=== PATIENT | male | born 1980 | race Caucasian/White ===

== ENCOUNTER 2017-11-23 00:46 | Emergency (ER) | payer OTHER, SELFPAY ==
[2017-11-23 00:48] VITALS: BP 138/72; PULSE 83; RESP 17; TEMP 36.7; O2SAT 99; BMI 43.2
--- NOTE | 2017-11-23 00:58 | ED.DCSUM_ITS ---
- ER Visit Summary Date of Service: 11/23/17 Chief Complaint: [] Stated he was at work at 6 PM and lifted heavy coils and felt abdominal pain. He has never had that before. He thinks it is from lifting heavy weight. Denies any other symptoms. It has been persistent. No history of a hernia. History of Present Illness: The patient is a 37 M [] Physical Examination: [] Vital signs reviewed General: Well-nourished well-developed Head: Normocephalic atraumatic Eyes: Pupils equal round and reactive to light extraocular movements intact ENT: TMs clear no hemotympanum no trauma Neck: Nontender full range of motion Cardiovascular: Regular rate rhythm no murmurs normal S1-S2 Respiratory: No distress clear to auscultation bilaterally chest nontender Abdomen: Soft superficial midline abdominal wall hernia just above umbilicus. Nondistended normal bowel sounds no masses Back: Nontender no CVA tenderness Extremities: Nontender active range of motion ?4 extremities no trauma Skin: Normal color no trauma Neuro alert oriented cranial nerves II through XII intact normal strength sensation reflexes Test Results: [] Emergency Department Course and Treatment: [] Hernia was easily reduced while laying him flat. Pain resolved. He will follow-up with Yosef in surgery. Given work restrictions. Treatment Plan: [] Disposition: [] Impression: [], Reducible abdominal wall hernia secondary to lifting This note was generated with [employer] (PRIMP) dictation software. It may contain incorrect words, spelling, and punctuation that were not noted in review of the chart prior to signing ED Disposition - Plan for ED Patient: Chief Complaint: Abd Pain Referrals: Care Physician,No Primary [Primary Care Provider] -
--- NOTE | 2017-11-23 00:58 | ED.DEP ---
ED Disposition - Plan for ED Patient: Disposition: Home or Assisted Living Chief Complaint: Abd Pain Instructions: What Is a Hernia? Referrals: Care Physician,No Primary [Primary Care Provider] - [facility] [GROUP OF PHYSICIANS] - Hannah Hodges MD [STAFF PHYSICIAN] -
[2017-11-23 01:49] VITALS: PULSE 78; RESP 18; O2SAT 100
== END 2017-11-23 01:50 | disposition home or self-care (01) ==
PROVIDERS: Emergency Provider Emergency Medicine
DX: K43.9 Ventral hernia without obstruction or gangrene (principal); E66.9 Obesity, unspecified
CPT/HCPCS: 99282

== ENCOUNTER → 2017-11-27 06:59 | Outpatient (CLI) | payer OTHER, SELFPAY ==
--- NOTE | 2017-11-27 07:03 | CT_ITS ---
STUDY: CT ABDOMEN AND PELVIS WITHOUT CONTRAST REASON FOR EXAM: Male, 37 years old. Abdominal pain. Umbilical hernia. RADIATION DOSAGE (If Supplied By Facility): CTDIvol = ( 23.53 ) mGy, DLP = ( 1364.12 ) mGycm TECHNIQUE: Transaxial images were obtained from the dome of the diaphragm to the symphysis pubis without oral contrast, and without intravenous contrast. Sagittal and coronal images were reconstructed. Individualized dose optimization techniques were used for this CT. COMPARISON: None. FINDINGS: The visualized lung bases are unremarkable. The visualized portions of the heart are within normal limits. There is decreased attenuation of the liver consistent with mild steatosis. The gallbladder is contracted. Normal unenhanced spleen and pancreas. Normal bilateral adrenal glands. Normal right kidney. Normal left kidney. Normal visualized stomach. Normal small intestine. There is moderate amount of retained fecal debris/stool seen in the colon. The appendix is visualized and appears normal. Normal abdominal aorta. Normal inferior vena cava. Normal retroperitoneum. Normal urinary bladder. Normal visualized prostate gland. A moderate size right paraumbilical hernia is demonstrated containing somewhat dirty/inflamed mesenteric fat. There are bilateral small inguinal hernias containing adipose tissue. Normal osseous structures. CT/Abdomen/Pelvis without Cont IMPRESSION: 1. A paraumbilical hernia containing somewhat dirty/inflamed mesenteric fat and bilateral small inguinal hernias containing adipose tissue demonstrated. 2. Gallbladder is contracted. 3. Moderate colonic stool volume. 4. No acute abnormality noted in the abdomen/pelvis. Electronically Signed: Rafat Shaw MD at 11:44 EDT Tel , Service support ,
== END ==
PROVIDERS: Visit Provider Surgery
DX: K43.9 Ventral hernia without obstruction or gangrene (principal); K42.0 Umbilical hernia with obstruction, without gangrene; R10.11 Right upper quadrant pain; R10.31 Right lower quadrant pain
CPT/HCPCS: 74176

== ENCOUNTER 2017-12-10 11:01 | Day surgery (SDC) | payer OTHER, SELFPAY ==
[2017-12-10] VITALS (7 sets, daily range): BP systolic 123–152; BP diastolic 73–96; PULSE 50–83; RESP 16–24; TEMP 36–37; O2SAT 92–97; BMI 43.9
[2017-12-10] MEDS: Cefazolin 2 GM in 0.9% Normal Saline 100 ML IV (12:58)
[2017-12-10] MEDS: Bupivacaine Mpf 0.5% 30 ML VIAL (15:10)
--- NOTE | 2017-12-10 15:19 | PCM.OPRPT ---
Report of Operation Date of Procedure: 12/10/17 Pre-Operative Diagnosis: Abdominal wall hernia, ventral hernia ?2 Post-Operative Diagnosis: Ventral hernia ?2 Surgery/Procedure Performed:: Laparoscopic ventral hernia repair ?2 with mesh Type of Anesthesia:: General Anesthesiologist: Bandar Parker Special Medications: Ancef 2 g IV ?1 Specimen's removed: None Estimated Blood Loss (mL): <20 cc Fluids Replaced: 2000 cc Description of Procedure: Indications this is a 37 year-old male who had a symptomatic ventral hernia ?2. Laparoscopic ventral hernia repair with mesh was elected. Description procedure: The patient was placed on operating table in supine position. General Anesthesia was induced. A timeout was completed verifying correct patient, procedure, site, position, social, and special equipment prior to beginning procedure. The abdomen was prepped and draped in usual sterile fashion. An incision was made in the epigastric midline at the location of the superior midline hernia which was located with use of ultrasound. The fascia was elevated and incised. The peritoneum was elevated and incised. Entry into the peritoneum was confirmed visually and no bowel was noted in the vicinity of the incision. Car trocar was placed. The abdomen was insufflated with carbon dioxide to a pressure of 12-15 mmHg. Patient tolerated insufflation well. The laparoscope was then inserted and abdomen inspected. No injuries from initial trocar placement were noted. Additional trochars were then inserted in the following locations 5 mm trocar in the right upper quadrant, right mid quadrant and right lower quadrant. The abdomen was inspected no abnormalities were found. The ventral hernias were inspected and peritoneal fat was removed with gentle pulling and pressure from both hernia. The hernia fat was removed using the Enseal and taken out through that Car trocar. This was also done with the more superior midline hernia as well. There was a small band between the trocar site in the more superior hernia which was taken down with Metzenbaum scissors. The echo mesh 11.4 cm x 11.4 cm was chosen for repair that would cover the lower ventral hernia, since the more superior one was smaller and they were by 12 cm. Mesh was rolled into a cylinder in place through the Car trocar. The inflation tubing was grasped with a suture passer in the middle of the hernia defect and pulled up against the abdominal wall. The balloon was deployed and the mesh was laying flat against the abdominal wall. This secure strap tacker was used to secure the mesh in place. The balloon deployment system was removed from the mesh and the abdomen. The mesh was further secured in place with additional tacks. Secondary trochars removed under direct vision. No bleeding was noted the trocar sites. The laparoscope was withdrawn and epigastric trocar removed. The abdomen was allowed to collapse. The fascia of the 12 mm trocar/more superior midline hernia was closed with 3 [id number] 0 Vicryl suture. The skin was closed with sutures of 4-0 Monocryl and Steri-Strips. The patient was extubated. The patient tolerated procedure well and was taken to the postanesthesia care unit in stable condition. - Complications None
--- NOTE | 2017-12-10 15:26 | PCM.DC.GS ---
Discharge Diet: Light diet - advance as tolerated Discharge Activity: May not drive while taking narcotic pain medications. May shower in (days): 1 Lifting Restrictions: No lifting greater than 20 lbs for 4 weeks & then will gradually increase Call your doctor if your incision/area has: Continuous Slow Oozing, Sudden Increased Bleeding, Increased Pain/ Swelling, Increased Redness, Foul Smelling Discharge, Swelling at the incision site Remove Dressing in (days):: 1 - Lead series in place for 10 days if they do not fall off okay to remove Additional Instructions: Percocet can cause constipation recommend taking stool softeners in the morning and at night while taking narcotics. Recommend taking ibuprofen/Advil 4-600 mg p.o. every 6 hours with food in between doses of Percocet to hopefully allow you to take less narcotics. If no bowel movement in 1 day would take several doses of MiraLAX. If no results from that would recommend taking magnesium citrate, first take half the bottle if no results in 6 hours then drink the remaining half. Allergies/Adverse Reactions: Allergies No Known Allergies Allergy (Verified 12/06/17 08:46) Medications to take at Discharge Oxycodone HCl/Acetaminophen [Percocet 5/325] 1 - 2 tab PO Q4H PRN PRN 4 Days #30 tab 12/10/17 The following prescriptions were given: Oxycodone HCl/Acetaminophen [Percocet 5/325] 1 - 2 tab PO Q4H PRN PRN 4 Days #30 tab PRN Reason: Pain Primary Care Physician: Care Physician,No Primary [Primary Care Provider] - Please Follow Up With: Hannah Hodges MD - after 5pm/weekend call [phone] with any concerns When: call office on Wednesday for appt in 2 weeks Proposed Discharge Date: 12/10/17
--- NOTE | 2017-12-10 15:30 | DCINST_ITS ---
Discharge Diet: Light diet - advance as tolerated Discharge Activity: May not drive while taking narcotic pain medications. May shower in (days): 1 Lifting Restrictions: No lifting greater than 20 lbs for 4 weeks & then will gradually increase Call your doctor if your incision/area has: Continuous Slow Oozing, Sudden Increased Bleeding, Increased Pain/ Swelling, Increased Redness, Foul Smelling Discharge, Swelling at the incision site Remove Dressing in (days):: 1 - Lead series in place for 10 days if they do not fall off okay to remove Additional Instructions: Percocet can cause constipation recommend taking stool softeners in the morning and at night while taking narcotics. Recommend taking ibuprofen/Advil 4-600 mg p.o. every 6 hours with food in between doses of Percocet to hopefully allow you to take less narcotics. If no bowel movement in 1 day would take several doses of MiraLAX. If no results from that would recommend taking magnesium citrate, first take half the bottle if no results in 6 hours then drink the remaining half. Allergies/Adverse Reactions: Allergies No Known Allergies Allergy (Verified 12/06/17 08:46) Medications to take at Discharge Oxycodone HCl/Acetaminophen [Percocet 5/325] 1 - 2 tab PO Q4H PRN PRN 4 Days # 30 tab 12/10/17 The following prescriptions were given: Oxycodone HCl/Acetaminophen [Percocet 5/325] 1 - 2 tab PO Q4H PRN PRN 4 Days # 30 tab PRN Reason: Pain Primary Care Physician: Care Physician,No Primary [Primary Care Provider] - Please Follow Up With: Hannah Hodges MD - after 5pm/weekend call [phone] with any concerns When: call office on Wednesday for appt in 2 weeks Proposed Discharge Date: 12/10/17
[2017-12-10] MEDS: oxyCODONE 5 MG Tablet 10 MG PO (16:50)
== END 2017-12-10 19:10 | disposition home or self-care (01) ==
LOC: SDC 11:02 → AC 11:03
PROVIDERS: Visit Provider Surgery
PROC: 0WQF4ZZ Repair Abdominal Wall, Percutaneous Endoscopic Approach (ICD-10-PCS; CPT 49652; principal; 2017-12-10 12:40)
DX: K42.0 Umbilical hernia with obstruction, without gangrene (principal); K43.9 Ventral hernia without obstruction or gangrene; K21.9 Gastro-esophageal reflux disease without esophagitis; Z87.891 Personal history of nicotine dependence
CPT/HCPCS: 49652; J7120; C1760; J2405

== ENCOUNTER → 2018-02-24 07:08 | Outpatient (CLI) | payer OTHER, SELFPAY ==
--- NOTE | 2018-02-24 07:09 | CT_ITS ---
STUDY: CT ABDOMEN AND PELVIS WITH CONTRAST REASON FOR EXAM: Male, 37 years old. Epigastric pain. Recent ventral hernia repair. RADIATION DOSAGE (If Supplied By Facility): CTDIvol = ( 20.55 ) mGy, DLP = ( 1578.07 ) mGycm TECHNIQUE: Transaxial images were obtained from the dome of the diaphragm to the symphysis pubis with oral contrast. 100 ml of Isovue 300 contrast was administered. Sagittal and coronal images were reconstructed. Individualized dose optimization techniques were used for this CT. COMPARISON: Comparison is made with prior study dated November 27, 2017. FINDINGS: The visualized lung bases are unremarkable. The visualized portions of the heart are within normal limits. There is decreased attenuation of the liver consistent with steatosis. Normal gallbladder and extrahepatic biliary system. Normal spleen. Normal pancreas. Normal bilateral adrenal glands. Normal right kidney. Normal left kidney. Normal visualized stomach. Normal small intestine. Normal colon. The appendix is visualized and appears normal. Normal abdominal aorta. Normal inferior vena cava. Normal retroperitoneum. Normal urinary bladder. The umbilical hernia has been repaired. There now is evidence of focal fat herniation in the ventral midline containing fat. The hernia neck measures 1.9 cm. This is in the mid anterior abdomen cephalad to the umbilicus. Stable small bilateral inguinal hernias containing fat slightly worse on the right side. Normal osseous structures. CT/Abdomen/Pelvis WITH Contrast IMPRESSION: The right paraumbilical hernia as been repaired. New small ventral hernia in the midline cephalad to the umbilicus containing fat. The hernia neck measures 1.9 cm Stable appearance of the small bilateral inguinal areas containing fat. Electronically Signed: Richy Greco MD at 12:33 EDT Tel [phone], Service support ,
== END ==
PROVIDERS: Visit Provider Surgery
DX: R10.9 Unspecified abdominal pain (principal)
CPT/HCPCS: 74177; Q9967

== ENCOUNTER 2018-03-08 10:49 | Day surgery (SDC) | payer OTHER, SELFPAY ==
[2018-03-08 11:08] VITALS: BP 122/98; PULSE 61; RESP 16; TEMP 36.5; O2SAT 98; BMI 44.7
[2018-03-08] MEDS: Cefazolin 2 GM in 0.9% Normal Saline 100 ML IV (13:18)
[2018-03-08] MEDS: Ondansetron 4 MG/2 ML Vial (13:42)
--- NOTE | 2018-03-08 14:52 | PCM.OPRPT ---
Report of Operation Date of Procedure: 03/08/18 Pre-Operative Diagnosis: Ventral incisional hernia Post-Operative Diagnosis: Incarcerated ventral incisional hernia Surgery/Procedure Performed:: Repair of incarcerated ventral incisional hernia with mesh pantomimist: Ilia Quispe pantomimist: Candice Riley Type of Anesthesia:: General/Supplemental Anesthesiologist: Bandar Parker Special Medications: ancef 2 grams IV x1 Estimated Blood Loss (mL): <30 cc Fluids Replaced: 1300 cc Description of Procedure: Patient was brought into the room placed supine on the operating table. Correct patient, procedure, site, positioning, special, was verified prior to procedure. General anesthesia was induced. The abdomen was prepped draped in usual sterile fashion. A midline epigastric incision was made with 10 blade scalpel in the area of the previous midline incision. This was deepened with electrocautery. The hernia was carefully dissected to expose the fascia which required enlargement of the fascial defect due to the incarcerated adipose tissue including some viable small bowel. Due to the incarcerated hernia tissue at the incision was enlarged. The hernia contents were able to be reduced into the abdomen. The underside of the fascia was able to be cleared to allow placement of the ventral ex ST medium [place] hernia patch which is able to lay flat. The straps were secured with a horizontal mattress sutures with 1-0 Nurolon sutures on each side. The mesh was further secured superiorly and inferiorly to the fascia with 0 Nurolon sutures. And the hernia defect was closed over the mesh with 2 [id number] 0 Nurolon sutures. The wound was irrigated and hemostasis was assured. The wound was closed with subcutaneous sutures of 3-0 Vicryl interrupted and the skin was closed with interrupted sutures of 4-0 Monocryl. The incision was dressed with pressure dressing of 4 x 4's with at 3000 OpSite over the top in an abdominal binder placed. Patient was extubated. Patient tolerated procedure well and was taken to the postanesthesia care unit in stable condition. Grafts/Implants Used: Ventralex ST hernia patch medium [place] with strap Lot [id number] - Complications none
--- NOTE | 2018-03-08 15:01 | OP.PCM_ITS ---
Report of Operation Date of Procedure: 03/08/18 Pre-Operative Diagnosis: Ventral incisional hernia Post-Operative Diagnosis: Incarcerated ventral incisional hernia Surgery/Procedure Performed:: Repair of incarcerated ventral incisional hernia with mesh fire officer: Ilia Quispe fire officer: Candice Riley Type of Anesthesia:: General/Supplemental Anesthesiologist: Bandar Parker Special Medications: ancef 2 grams IV x1 Estimated Blood Loss (mL): <30 cc Fluids Replaced: 1300 cc Description of Procedure: Patient was brought into the room placed supine on the operating table. Correct patient, procedure, site, positioning, special, was verified prior to procedure. General anesthesia was induced. The abdomen was prepped draped in usual sterile fashion. A midline epigastric incision was made with 10 blade scalpel in the area of the previous midline incision. This was deepened with electrocautery. The hernia was carefully dissected to expose the fascia which required enlargement of the fascial defect due to the incarcerated adipose tissue including some viable small bowel. Due to the incarcerated hernia tissue at the incision was enlarged. The hernia contents were able to be reduced into the abdomen. The underside of the fascia was able to be cleared to allow placement of the ventral ex ST medium [place] hernia patch which is able to lay flat. The straps were secured with a horizontal mattress sutures with 1-0 Nurolon sutures on each side. The mesh was further secured superiorly and inferiorly to the fascia with 0 Nurolon sutures. And the hernia defect was closed over the mesh with 2 [id number] 0 Nurolon sutures. The wound was irrigated and hemostasis was assured. The wound was closed with subcutaneous sutures of 3-0 Vicryl interrupted and the skin was closed with interrupted sutures of 4-0 Monocryl. The incision was dressed with pressure dressing of 4 x 4's with at 3000 OpSite over the top in an abdominal binder placed. Patient was extubated. Patient tolerated procedure well and was taken to the postanesthesia care unit in stable condition. Grafts/Implants Used: Ventralex ST hernia patch medium [place] with strap Lot [id number] - Complications none
--- NOTE | 2018-03-08 15:01 | PCM.DC.GS ---
Discharge Diet: Light diet - advance as tolerated Discharge Activity: May not drive while taking narcotic pain medications. May shower in (days): 1 Lifting Restrictions: no lifting >20 lbs for 4 weeks then will gradually increase Call your doctor if your incision/area has: Continuous Slow Oozing, Sudden Increased Bleeding, Increased Pain/ Swelling, Increased Redness, Foul Smelling Discharge, Swelling at the incision site Call your doctor if you observe: Fever of 101 or Higher Remove Dressing in (days):: 2 Additional Instructions: Wear abdominal binder for comfort only. Caution Percocet may cause constipation. Make sure take a stool softener with the Percocet. Also may take ibuprofen 600-800 mg p.o. every 6 hours in between doses. Take all pain meds with food. If no bowel movement in 2 days take several doses of MiraLAX throughout the day. Still if no bowel movement recommend taking half a bottle of magnesium citrate the following day, if no bowel movement in 6 hours drink the remaining half. Allergies/Adverse Reactions: Allergies No Known Allergies Allergy (Verified 03/07/18 10:21) Medications to take at Discharge Oxycodone HCl/Acetaminophen [Percocet 5/325] 1 - 2 tablet PO Q6H PRN PRN 4 Days #35 tablet 03/08/18 The following prescriptions were given: Oxycodone HCl/Acetaminophen [Percocet 5/325] 1 - 2 tablet PO Q6H PRN PRN 4 Days #35 tablet PRN Reason: Pain Primary Care Physician: Care Physician,No Primary [Primary Care Provider] - Test Results: Test results from this visit will be discussed in further detail at your follow-up appointment, if applicable. Please Follow Up With: Hannah Hodges MD - Call [phone] after 5 PM or on the weekends with any concerns. When: Call the office for an appointment in 3-4 weeks. Proposed Discharge Date: 03/08/18
--- NOTE | 2018-03-08 15:05 | DCINST_ITS ---
Discharge Diet: Light diet - advance as tolerated Discharge Activity: May not drive while taking narcotic pain medications. May shower in (days): 1 Lifting Restrictions: no lifting >20 lbs for 4 weeks then will gradually increase Call your doctor if your incision/area has: Continuous Slow Oozing, Sudden Increased Bleeding, Increased Pain/ Swelling, Increased Redness, Foul Smelling Discharge, Swelling at the incision site Call your doctor if you observe: Fever of 101 or Higher Remove Dressing in (days):: 2 Additional Instructions: Wear abdominal binder for comfort only. Caution Percocet may cause constipation. Make sure take a stool softener with the Percocet. Also may take ibuprofen 600-800 mg p.o. every 6 hours in between doses. Take all pain meds with food. If no bowel movement in 2 days take several doses of MiraLAX throughout the day. Still if no bowel movement recommend taking half a bottle of magnesium citrate the following day, if no bowel movement in 6 hours drink the remaining half. Allergies/Adverse Reactions: Allergies No Known Allergies Allergy (Verified 03/07/18 10:21) Medications to take at Discharge Oxycodone HCl/Acetaminophen [Percocet 5/325] 1 - 2 tablet PO Q6H PRN PRN 4 Days #35 tablet 03/08/18 The following prescriptions were given: Oxycodone HCl/Acetaminophen [Percocet 5/325] 1 - 2 tablet PO Q6H PRN PRN 4 Days #35 tablet PRN Reason: Pain Primary Care Physician: Care Physician,No Primary [Primary Care Provider] - Test Results: Test results from this visit will be discussed in further detail at your follow- up appointment, if applicable. Please Follow Up With: Hannah Hodges MD - Call [phone] after 5 PM or on the weekends with any concerns. When: Call the office for an appointment in 3-4 weeks. Proposed Discharge Date: 03/08/18
[2018-03-08] MEDS: Bupiv/Epi 0.5% Mpf 30 ML Vial (15:06)
[2018-03-08 15:35] VITALS: BP 122/98; BP 162/95; PULSE 89; RESP 16; TEMP 36.3; O2SAT 92
[2018-03-08 15:45] VITALS: BP 122/98; BP 145/76; PULSE 78; RESP 16; O2SAT 96
[2018-03-08 16:00] VITALS: BP 122/98; BP 161/74; PULSE 81; RESP 16; O2SAT 93
[2018-03-08 16:03] VITALS: BP 122/98; BP 153/83; PULSE 76; RESP 16; TEMP 36.3; O2SAT 93
[2018-03-08 17:20] VITALS: BP 122/98; BP 157/71; PULSE 95; RESP 18; TEMP 36.6; O2SAT 95
== END 2018-03-08 17:25 | disposition home or self-care (01) ==
LOC: SDC 10:50 → AC 10:51
PROVIDERS: Visit Provider Surgery
PROC: (CPT 49561; principal; 2018-03-08 12:15)
DX: K43.0 Incisional hernia with obstruction, without gangrene (principal); Z87.891 Personal history of nicotine dependence
CPT/HCPCS: 49561; 49568; C1781; J7120; J2405

== ENCOUNTER 2019-01-11 08:49 | Emergency (ER) | payer OTHER, SELFPAY ==
[2019-01-11 08:50] VITALS: BP 134/79; PULSE 86; RESP 16; TEMP 36.4; O2SAT 97; BMI 48.8
--- NOTE | 2019-01-11 09:07 | ED.DCSUM_ITS ---
- ER Visit Summary Date of Service: 01/11/19 Chief Complaint: Left jaw swelling History of Present Illness: The patient is a 38 M who presents with swelling of his left lower jaw for the past 2 days. Patient states he has some throbbing pain in that area. Patient states the pain is worse with talking and with certain movements. Patient denies any dental pain. Patient does admit to some pain and swelling on the inside of his left nares. Patient denies any rhinorrhea however. Patient denies any fevers or chills. Patient denies any nausea or vomiting. Patient denies any chest pain or shortness of breath. Patient denies any difficulty swallowing. Physical Examination: Vital signs are stable. Patient is afebrile. Patient is in no acute distress. Tympanic membranes are clear bilaterally. There is some edema on the lateral aspect of the left internal nares. Oral mucosa is pink and moist. There is a dental caries noted over the left lower first molar. There is no tenderness over this tooth. Neck is supple. Trachea is midline. There is tender submandibular lymphadenopathy on the left. There is no edema or erythema in the sublingual area. Oropharynx is clear. Airway is patent. Heart was regular rate and rhythm. Lungs are clear and equal bilaterally. Emergency Department Course and Treatment: Patient was advised that the pain is from a swollen lymph node due to an infected dental carry or nasal infection. Patient was given a prescription for clindamycin. Patient was instructed to take Tylenol as needed for pain. Patient was instructed to follow-up with a primary care physician in 5 to 7 days. Patient understood and was agreeable with the plan. All questions were answered. Disposition: Discharge home Impression: 1. Submandibular lymphadenitis 2. Infected dental carry This note was generated with [employer] dictation software. It may contain incorrect words, spelling, and punctuation that were not noted in review of the chart prior to signing ED Disposition - Plan for ED Patient: Disposition: Home or Assisted Living Diagnosis: Submandibular lymphadenitis, Infected dental carries Instructions: ED Cervical Adenitis Abx Tx, ED Cavity Dental Prescriptions: Clindamycin HCl [Cleocin] 300 mg PO Q6H #40 cap Referrals: Care Physician,No Primary [Primary Care Provider] - Aubrey Yeager MD [STAFF PHYSICIAN] - 5-7 Days
--- NOTE | 2019-01-11 09:30 | ED.RN ---
DISCHARGE INSTRUCTIONS GIVEN TO AND REVIEWED WITH PATIENT, PATIENT DENIES QUESTIONS OR CONCERNS AND VOICES UNDERSTANDING OF DISCHARGE INSTRUCTIONS. PT AMBULATES OUT OF ROOM WITHOUT DIFFICULTY.
== END 2019-01-11 09:31 | disposition home or self-care (01) ==
PROVIDERS: Emergency Provider Emergency Medicine
DX: K02.9 Dental caries, unspecified (principal); I88.9 Nonspecific lymphadenitis, unspecified; E66.9 Obesity, unspecified
CPT/HCPCS: 99282

== ENCOUNTER → 2019-03-03 09:57 | Outpatient (CLI) | payer OTHER, SELFPAY | PROVIDERS: Referring Provider Obstetrics & Gynecology; Visit Provider Obstetrics & Gynecology | DX: Z31.440 Encounter of male for testing for genetic disease carrier status for procreative management (principal) ==

== ENCOUNTER 2019-03-03 22:13 | Emergency (ER) | payer OTHER, SELFPAY ==
[2019-03-03 22:14] VITALS: BP 160/76; PULSE 94; RESP 16; TEMP 36.6; O2SAT 97; BMI 46.0
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
[2019-03-03] MEDS: HYDROcodone Bitartrate/Apap 5/325 Tablet PO (23:23)
[2019-03-03] MEDS: Orphenadrine 60 MG/2 ML Ampul IM (23:23)
[2019-03-03 23:38] VITALS: PULSE 88; RESP 16; O2SAT 98
== END 2019-03-03 23:38 | disposition home or self-care (01) ==
LOC: ED 23:11
PROVIDERS: Emergency Provider Emergency Medicine
DX: S39.012A Strain of muscle, fascia and tendon of lower back, initial encounter (principal); V43.62XA Car passenger injured in collision with other type car in traffic accident, initial encounter; Y93.9 Activity, unspecified; Y92.9 Unspecified place or not applicable; Y99.9 Unspecified external cause status; Z88.0 Allergy status to penicillin; Z88.6 Allergy status to analgesic agent; Z87.891 Personal history of nicotine dependence
CPT/HCPCS: 96372; 99283

== ENCOUNTER → 2019-03-07 11:01 | Outpatient (CLI) | payer OTHER, SELFPAY ==
[2019-03-03 22:14] VITALS: BMI 46.0
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
== END ==
PROVIDERS: Referring Provider Chiropractor; Visit Provider Chiropractor
DX: S33.5XXA Sprain of ligaments of lumbar spine, initial encounter (principal); V89.2XXA Person injured in unspecified motor-vehicle accident, traffic, initial encounter; Y93.9 Activity, unspecified; Y92.9 Unspecified place or not applicable; Y99.9 Unspecified external cause status
CPT/HCPCS: 72110

== ENCOUNTER 2019-07-31 17:24 | Emergency (ER) | payer OTHER, SELFPAY ==
[2019-07-31 17:26] VITALS: BP 152/80; PULSE 53; RESP 16; TEMP 36.4; O2SAT 99; BMI 42.0
--- NOTE | 2019-07-31 18:51 | ED.VISSUMM ---
- ER Visit Summary Date of Service: 07/31/19 Chief Complaint: Abscess History of Present Illness: The patient is a 38 M with no primary care physician. He reports he has an abscess on the right side of his chest that began 2 days ago. States he has a sharp, stabbing pain is 10-10 in severity. Is worsened by touching it or moving. Is relieved by ibuprofen. He is never had anything like this before. He denies any constitutional symptoms. No fever, chills, vomiting. Physical Examination: Vitals: Stable. Afebrile. General: Well-nourished and well-developed. Head: Normocephalic atraumatic. Neck: Supple, no lymphadenopathy. No JVD. Nontender. Cardiovascular: Regular rate and rhythm. No murmurs. Respiratory: No respiratory distress. Clear to auscultation bilaterally. Abdominal: Soft, nontender, nondistended, normal bowel sounds. No guarding, rebound, or peritoneal signs. Back: Nontender. Extremities: Nontender, no edema. Skin: Right medial chest there is a 3 cm indurated area without fluctuance.. Neurologic: Alert and oriented ?3. Cranial nerves II through XII are intact. Normal strength and sensation. Psych: Normal affect. Emergency Department Course and Treatment: I discussed the patient treatment options. At this time I do not think that drainage would be helpful. He is given doxycycline, naproxen, and Percocet p.o. Treatment Plan: Patient does understand that if this does not improve with conservative management with doxycycline that he may require an I&D. Instructed follow Dr. Beyer in 2 days for a wound check. Return to the emergency department for any worsening symptoms. Disposition: To home in improved and stable condition. Impression: 1 1. Abscess to chest wall. This note was generated with Get In dictation software. It may contain incorrect words, spelling, and punctuation that were not noted in review of the chart prior to signing ED Disposition - Plan for ED Patient: Disposition: Home or Assisted Living Instructions: ABSCESS, Antiobiotic Treatment Only Prescriptions: Doxycycline 100 mg PO BID #20 cap Prescription Printed Naproxen [Naprosyn] 500 mg PO BID #14 tab Prescription Printed Oxycodone HCl/Acetaminophen [Percocet 5/325] 1 tab PO Q6H PRN PRN 3 Days #12 tab PRN Reason: Pain Prescription Printed Referrals: Black Beyer MD [STAFF PHYSICIAN] - 2 Days for wound check
[2019-07-31] MEDS: Naproxen 250 MG Tablet 500 MG PO (18:58)
[2019-07-31] MEDS: Doxycycline 100 MG CAPSULE PO (19:00)
[2019-07-31] MEDS: oxyCODONE 5 MG Tablet PO (19:00)
[2019-07-31] MEDS: Acetaminophen 325 MG Tablet 1000 MG PO (19:00)
[2019-07-31 19:03] VITALS: PULSE 60; RESP 17; TEMP 36.4; O2SAT 99
== END 2019-07-31 19:07 | disposition home or self-care (01) ==
LOC: ED 19:02
PROVIDERS: Emergency Provider Emergency Medicine
DX: L02.213 Cutaneous abscess of chest wall (principal)
CPT/HCPCS: 99283

== ENCOUNTER 2019-10-24 10:36 | Emergency (ER) | payer BC, SELFPAY ==
[2019-10-24 10:38] VITALS: BP 162/89; PULSE 79; RESP 18; TEMP 36.8; O2SAT 98; BMI 43.5
--- NOTE | 2019-10-24 11:03 | ED.DCSUM_ITS ---
History of Present Illness Chief Complaint: Upper Extremity Injury Detail of Chief Complaint: Left index finger pain and swelling Informant: Patient Onset: Days Context: Gradual Onset Current Severity: Moderate Maximum Severity: Moderate Narrative: Patient presents with swelling and pain to his left index finger. Patient states symptoms started last week. Hands are slightly dry and cracked. He states pain started around the PIP area and is now spread. He has not had any drainage of the wound. He has had no fever. He is right-hand dominant. Past Medical History - Allergies and Home Meds Allergies/Adverse Reactions: Allergies amoxicillin Allergy (Severe, Verified 10/24/19 10:40) Anaphylaxis SJS Penicillins Allergy (Severe, Verified 10/24/19 10:40) Anaphylaxis SJS Primary Care Physician: Care Physician,No Primary [Primary Care Provider] - Past Medical History: None Surgical History: herniorrhaphy Smoking Status: Never smoker - Family History Maternal Family History: Reports: - Review of Systems General: Denies: Chills, Fever Eyes: Denies: Visual changes - bilaterally ENT: Denies: Bilateral ear pain Cardiovascular: Denies: Chest pain Respiratory: Denies: Dyspnea, Cough Musculoskeletal: Reports: Swelling, Extremity Pain Skin: Denies: Rash Neurological: Denies: Headache, Parasthesia Hematologic: Denies: Easy bruising, Easy bleeding Allergy: Denies: Uticaria Physical Exam Vital Signs/Narrative: Vital Signs Temp Pulse Resp BP Pulse Ox 10/24/19 10:38 98.2 F 79 18 162/89 H 98 Inital Vital Signs reviewed: Yes General: Well nourished, Well developed Head: Normocephalic ENT: Moist mucous membranes Neck: Supple Cardiovascular: Regular rate, Regular rhythm Respiratory: No distress, CTA bilaterally Abdomen: Soft, Nontender Extremities: - - Mild edema noted to the left index finger. He has tenderness over the proximal and mid phalanx worse along the palmar surface. No tenderness of the distal phalanx. He is able to extend and flex at his wrist without difficulty. There is no focal fluctuance. No cellulitis. Psychological: Normal affect Diagnostic/Tx/Re-eval Impressions Hand X-Ray 10/24/19 11:45 IMPRESSION: Diffuse soft tissue swelling of the index finger. Electronically Signed: Richy Greco, at 12:32 EDT , Service support , 10/24/19 11:45 Hand Min 3 Views [RAD] Stat - Medical Decision Making Patient was given doxycycline as well as a dose of naproxen here. Test results are discussed with him. At this time there is no evidence of flexor tenosynovitis. Patient was giving warning and symptoms to watch for. He will be given prescriptions for doxycycline, naproxen, and [place]. He is to follow-up with Dr. Mcmillan. ED Disposition - Plan for ED Patient: Disposition: Home or Assisted Living Diagnosis: Finger infection Instructions: Cellulitis Prescriptions: Doxycycline 100 mg PO BID #20 cap Transmission Status: Pending to [facility] [place] Naproxen [Naprosyn] 500 mg PO BID #14 tab Transmission Status: Pending to [facility] [place] Hydrocodone Bitart/Apap 5-325 [[place] 5MG-325MG] 1 tablet PO Q6H PRN PRN 3 Days #10 tablet PRN Reason: Pain Transmission Status: Sent to [facility] [place] Referrals: Gerber Mcmillan MD [STAFF PHYSICIAN] - 3-5 Days if not improving
--- NOTE | 2019-10-24 11:45 | RAD_ITS ---
STUDY: X-RAY - LEFT HAND REASON FOR EXAM: Male, 39 years old. PT WITH LEFT INDEX FINGER SWELLING AND PAIN. NO KNOWN INJURY. TECHNIQUE: 3 view(s) of the hand. COMPARISON: None. FINDINGS: Normal radiocarpal articulation. Normal distal radioulnar joint. Normal visualized carpal bones. Normal carpal articulations Normal carpometacarpal articulation of the thumb. Normal second through fifth carpometacarpal joints. Normal metacarpi. Normal metacarpophalangeal joint of the thumb. Normal interphalangeal joint of the thumb. Normal proximal and distal phalanges of the thumb. Normal metacarpophalangeal joints of the second through fifth fingers. Normal proximal and distal interphalangeal joints of the second through fifth fingers. Normal phalanges of the second through fifth fingers. Diffuse soft tissue swelling of the index finger. RAD/Hand Min 3 Views IMPRESSION: Diffuse soft tissue swelling of the index finger. Electronically Signed: Richy Greco, at 12:32 EDT , Service support ,
[2019-10-24] MEDS: Doxycycline 100 MG CAPSULE PO (12:09)
[2019-10-24] MEDS: Naproxen 500 MG Tablet PO (12:09)
== END 2019-10-24 13:27 | disposition home or self-care (01) ==
PROVIDERS: Emergency Provider Emergency Medicine
DX: L08.9 Local infection of the skin and subcutaneous tissue, unspecified (principal); M79.645 Pain in left finger(s); M79.89 Other specified soft tissue disorders; Z88.0 Allergy status to penicillin
CPT/HCPCS: 73130; 99283

== ENCOUNTER 2021-03-18 10:24 | Emergency (ER) | payer SELFPAY ==
[2021-03-18 10:24] VITALS: BP 153/104; PULSE 76; RESP 20; TEMP 36.1; O2SAT 98; BMI 42.0
--- NOTE | 2021-03-18 10:36 | EDS_ITS ---
HPI History of Present Illness Chief Complaint: Back Informant: patient Narrative Narrative: 40-year-old male presents for the evaluation of back pain. 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 He denies any radicular symptoms. No prior history of this. He notes that it is worse with movement. [facility] Medical History (Updated 03/18/21 @ 10:[address] Ilia Atkins DO) Acute respiratory failure Conjunctivitis, acute Pharyngitis Right groin pain Sepsis Home Medications doxycycline monohydrate 100 mg PO BID #20 cap 07/31/19 [Rx Last Taken Unknown] naproxen 500 mg PO BID #14 tab 07/31/19 [Rx Last Taken Unknown] doxycycline monohydrate 100 mg PO BID #20 cap 10/24/19 [Rx Last Taken Unknown] naproxen 500 mg PO BID #14 tab 10/24/19 [Rx Last Taken Unknown] diazepam 5 mg PO Q8 PRN #15 tab 03/18/21 [Rx Last Taken Unknown] hydrocodone-acetaminophen 1 - 2 tab PO Q6H PRN PRN 3 Days #24 tablet 03/18/21 [Rx Last Taken Unknown] ibuprofen 600 mg PO Q6H PRN PRN #12 tablet 03/18/21 [Rx Last Taken Unknown] Allergy/AdvReac Type Severity Reaction Status Date / Time amoxicillin Allergy Severe Anaphylaxis Verified 10/24/19 10:40 Penicillins Allergy Severe Anaphylaxis Verified 10/24/19 10:40 Surgical History H/O hernia repair S/P myringotomy with insertion of tube S/P tonsillectomy S/P ventral herniorrhaphy Social History Smoking Status: Never smoker alcohol intake: current alcohol intake frequency: a few times a month [facility] ED Constitutional Constitutional ED: Denies chills or weight loss Eyes Eyes: Denies change in vision or diplopia ENT ENT ED: Denies ear pain, rhinorrhea or sore throat Cardiovascular Cardiovascular: Denies chest pain, orthopnea, palpitations or racing heartbeat Respiratory/Chest Respiratory/Chest: Denies cough, dyspnea or orthopnea Gastrointestinal Gastrointestinal: Denies abdominal pain, diarrhea, nausea or vomiting Genitourinary Genitourinary ED: Denies dysuria, hematuria or urinary frequency Musculoskeletal Musculoskeletal: Reports back pain; Denies arthralgias or myalgias Integumentary Denies abscess or rash Neurologic Neurologic: Denies headache(s) or weakness Psychiatric Psychiatric: Denies anxiety, depression, suicidal ideation or suicidal thoughts Endocrine Endocrinology: Denies polydipsia, polyphagia or polyuria Allergic/Immunologic Allergic/Immunologic ED: Denies mouth swelling, tongue swelling or urticaria EXAM Physical Exam Narrative Exam Narrative: Patient sitting on the side of the bed appears in pain. Const Vital Signs: 03/18/21 10:24 Temperature 96.9 F L Temperature Source Temporal Pulse Rate 76 Respiratory Rate 20 H Blood Pressure 153/104 H Blood Pressure Mean 120 Pulse Ox 98 Oxygen Delivery Method Room Air Positive well nourished and well developed General Appearance ED: well developed HEENT Reports normocephalic, head/scalp atraumatic and moist mucous membranes Eyes PERRL and EOMs intact bilaterally Neck no lymphadenopathy, supple and no JVD Resp normal respiratory effort and clear to auscultation bilaterally Cardio regular rate, regular rhythm and no murmurs GI normal to inspection, nondistended, normoactive bowel sounds and non-tender Palpation: soft Back/Spine no CVA tenderness and normal ROM Back/Spine Narrative: Tender to palpation over the left lumbar musculature. No tissue texture changes to suggest underlying abscess Extremity normal to inspection General Extremety ED: Negative for edema General Extremity: Negative for edema Neuro oriented x3 and CN's II-XII intact bilaterally Neuro Narrative: Patellar Achilles reflex intact. Sensorium / Orientation: alert Motor Exam: strength 5/5 throughout Psych mental status grossly normal Mood & Affect: Negative for depressed or tearful Skin no rashes or lesions noted and no wounds MDM MDM MDM Narrative Medical decision making narrative: Patient appears to have muscular spasm. He was treated with morphine Toradol and Valium. Plan will be for rest gentle stretching heat Valium and Shiro at home. I would suggest following up with his primary care physician to talk about possible physical therapy as I suspect that there is a muscular imbalance which has resulted in this Discharge Plan Triage Chief Complaint: Back ED Provider: Ilia Atkins Dx/Rx/DC Orders Clinical Impression: Back muscle spasm Instructions: ED Back Spasm, No Trauma Prescriptions: New hydrocodone-acetaminophen [hydrocodone-acetaminophen] 1 TABLET tablet 1 - 2 tab PO Q6H PRN PRN (Reason: Pain) 3 Days Qty: 24 RF: 0 diazepam [diazepam] 5 MG tablet 5 mg PO Q8 PRN (Reason: Muscle Spasm) Qty: 15 RF: 0 ibuprofen 600 MG tablet 600 mg PO Q6H PRN PRN (Reason: pain) Qty: 12 RF: 0 No Action doxycycline monohydrate 100 MG capsule 100 mg PO BID Qty: 20 RF: 0 naproxen 500 MG tablet 500 mg PO BID Qty: 14 RF: 0 doxycycline monohydrate 100 MG capsule 100 mg PO BID Qty: 20 RF: 0 naproxen 500 MG tablet 500 mg PO BID Qty: 14 RF: 0 Primary Care Provider: Care Physician,No Primary Referrals: Care Physician,No Primary [Primary Care Provider] - Activity Restrictions/Additional Instructions: Once the muscle spasm has subsided he may visit with primary care and talk about physical therapy as there is most likely a muscular imbalance which has caused this. Disposition Disposition: Home, Self Care
[2021-03-18] MEDS: diazePAM 5 MG Tablet PO (10:46)
[2021-03-18] MEDS: morphine 10 MG/ML Syringe IM (10:46)
[2021-03-18] MEDS: Ketorolac 60 MG/2 ML Vial IM (10:46)
[2021-03-18 11:48] VITALS: PULSE 77; RESP 15; O2SAT 97
== END 2021-03-18 11:54 | disposition home or self-care (01) ==
LOC: ED 11:36
PROVIDERS: Emergency Provider Emergency Medicine
DX: M62.830 Muscle spasm of back (principal); Z79.1 Long term (current) use of non-steroidal anti-inflammatories (NSAID); Z79.899 Other long term (current) drug therapy
CPT/HCPCS: 96372; 99283

== ENCOUNTER 2022-06-11 05:41 | Emergency (ER) | payer OTHER, BC, SELFPAY ==
[2022-06-11 05:41] VITALS: BP 160/95; PULSE 84; RESP 16; TEMP 36.4; O2SAT 98; BMI 51.0
--- NOTE | 2022-06-11 05:46 | RAD_ITS ---
INDICATION: Back pain radiating to the right buttock, injured at work. EXAMINATION/TECHNIQUE: X-RAY - XR Spine Lumbar 2 or 3 Views: AP, lateral and spot views COMPARISON: Lumbar spine radiographs from 03/07/2019 FINDINGS: VERTEBRAE: Preserved vertebral body heights. No acute fracture or suspicious osseous lesion. 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 No spondylolisthesis. No significant facet arthropathy. DISCS: Disc spaces are maintained. INCLUDED ABDOMEN: Included bowel gas pattern is non-obstructive. RAD/Lumbar Spine 2 or 3 Views IMPRESSION: Lumbar spine with no acute osseous abnormality. Electronically Signed: Kapil Barrett MD at 6:34 EDT ,
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
[2022-06-11] MEDS: Ketorolac 60 MG/2 ML Vial IM (05:58)
--- NOTE | 2022-06-11 06:06 | ED.RN ---
PT UNSURE IF HIS [employer] IN [place] REQUIRES TESTING FOR WORKERS COMP. PT GAVE THE NUMBER OF [phone] FOR HIS EMPLOYER PHONE #. CALLED THIS # AND NO ONE ANSWERED AND WAS UNABLE TO LEAVE ANY MESSAGE TO CALL [facility] ED.
[2022-06-11 07:02] VITALS: BP 160/95; PULSE 84; RESP 16; O2SAT 98
== END 2022-06-11 07:04 | disposition home or self-care (01) ==
PROVIDERS: Emergency Provider Emergency Medicine; Visit Provider Emergency Medicine
DX: S39.012A Strain of muscle, fascia and tendon of lower back, initial encounter (principal); M62.830 Muscle spasm of back; X58.XXXA Exposure to other specified factors, initial encounter; Y99.0 Civilian activity done for income or pay
CPT/HCPCS: 72100; 96372; 99282

== ENCOUNTER 2023-07-09 17:13 | Emergency (ER) | payer SELFPAY ==
[2023-07-09 17:14] VITALS: BP 153/88; PULSE 88; RESP 20; TEMP 36.2; O2SAT 95; BMI 48.8
[2023-07-09] MEDS: Ipratropium/Albuterol Sulfate 3 ML AMPUL.NEB INHALATION (17:45)
[2023-07-09 17:46] VITALS: PULSE 86; RESP 16
--- NOTE | 2023-07-09 17:55 | RAD_ITS ---
EXAM: XR CHEST, 2 VIEWS CLINICAL INDICATION: Cough TECHNIQUE: Frontal and lateral views of the chest. COMPARISON: [id number]. FINDINGS: LUNGS AND PLEURAL SPACES: Unremarkable. No consolidation or edema. No pneumothorax. No effusion. HEART: Unremarkable. Cardiac silhouette not enlarged. MEDIASTINUM: Central airways and mediastinal contour are unremarkable. BONES/JOINTS: Unremarkable. No acute fracture. SOFT TISSUES: Unremarkable. RAD/Chest PA and Lateral IMPRESSION: No acute cardiopulmonary abnormality. Electronically Signed: Torres Cancino MD at 18:15 EST ,
--- NOTE | 2023-07-09 18:36 | EDS_ITS ---
HPI History of Present Illness Chief Complaint: Cold Sx Informant: patient Onset/Context/Timing Onset: Weeks (1) Context: Gradual Onset Timing: Continuous Quality: Congestion Location: Chest and upper respiratory tract Worsened by: Nothing Relieved by: Nothing Narrative Narrative: Patient presents with cough and congestion that has been getting worse over the past week. Patient states he was coughing at work today and nearly passed out. Patient states she has been having a hoarse voice. Patient admits to a headache, nasal congestion and rhinorrhea. Patient states he has been coughing up some green and yellow sputum. Patient admits to some pain in his chest with coughing. Patient states he gets short of breath at times. Patient denies any nausea or vomiting. Patient states he did have some diarrhea last week. Patient denies any fevers or chills. [facility] Medical History Acute respiratory failure Conjunctivitis, acute Pharyngitis Right groin pain Sepsis Zavala-Joselo syndrome Home Medications NK 06/19/22 [History Last Taken Unknown] Allergy/AdvReac Type Severity Reaction Status Date / Time amoxicillin Allergy Severe Anaphylaxis Verified 07/09/23 17:13 Penicillins Allergy Severe Anaphylaxis Verified 07/09/23 17:13 Surgical History H/O hernia repair S/P myringotomy with insertion of tube S/P tonsillectomy S/P ventral herniorrhaphy Social History Smoking Status: Never smoker alcohol intake: current alcohol intake frequency: a few times a month ROS ROS ED Constitutional Constitutional ED: Denies chills or fever(s) Eyes Eyes: Denies blurry vision or change in vision ENT ENT ED: Reports rhinorrhea and sore throat Cardiovascular Cardiovascular: Reports chest pain; Denies palpitations Respiratory/Chest Respiratory/Chest: Reports cough and dyspnea Gastrointestinal Gastrointestinal: Denies nausea or vomiting Genitourinary Genitourinary ED: Denies dysuria or hematuria Musculoskeletal Musculoskeletal: Reports back pain and neck pain Integumentary Denies abscess or rash Neurologic Neurologic: Reports headache(s); Denies weakness Allergic/Immunologic Allergic/Immunologic ED: Denies mouth swelling or urticaria EXAM Physical Exam Const Vital Signs: 07/09/23 17:14 07/09/23 17:47 07/09/23 17:46 Temperature 97.1 F L Temperature Source Temporal Pulse Rate 88 86 Respiratory Rate 20 H 16 Respiratory Effort Normal Non-Labored Respiratory Pattern Normal Normal Blood Pressure 153/88 H Blood Pressure Mean 109 Pulse Ox 95 Oxygen Delivery Method Room Air Positive well nourished, well developed and obese General Appearance ED: well developed and NAD Nutritional Appearance: obese HEENT Reports moist mucous membranes Neck supple and no JVD Chest Wall inspection of chest normal and palpation of chest normal Resp normal respiratory effort and clear to auscultation bilaterally Cardio regular rate and regular rhythm GI non-tender and non-distended Palpation: soft Neuro oriented x3, CN's II-XII intact bilaterally and no sensory deficits noted Sensorium / Orientation: alert Motor Exam: strength 5/5 throughout Psych mental status grossly normal MDM MDM MDM Narrative Medical decision making narrative: Differential diagnosis includes pneumonia, viral upper respiratory tract in fection, COVID-19 infection, and influenza infection. Chest x-ray will be obtained to assess for pneumonia. COVID-19 rapid antigen will be obtained to assess for COVID-19 infection. Influenza A and influenza B antigens will be obtained to assess for influenza infection. Lab Data Lab results narrative: COVID-19 rapid antigen was reviewed and was negative. Influenza A and influenza B antigens were reviewed and were negative. Radiography Diagnostic Testing: Clinical Impression(s) from Imaging Studies Chest X-Ray 07/09/23 17:55 IMPRESSION: No acute cardiopulmonary abnormality. Electronically Signed: Torres Cancino MD at 18:15 [facility] , [place] and lateral chest x-ray was obtained. There are 2 views. On my independent interpretation, lung cates are clear. There is normal cardiac silhouette. Bony thorax is normal. There is no acute process noted. Radiologist also interpreted the x-ray and agrees. Treatment and Re-Evaluation :: Patient was given a DuoNeb aerosol here. Patient was advised of his findings. Patient was advised that this is most likely a viral upper respiratory tract infection. Patient was instructed to continue Tylenol and ibuprofen as needed for any fevers. Patient was instructed to use [id number] cough suppressants as needed for cough. Patient was instructed to drink plenty of fluids. Patient was instructed to follow-up with his primary care physician in 5 to 7 days. Patient understood and was agreeable with the plan. All questions were answered. Discharge Plan Triage Chief Complaint: Cold Sx ED Provider: Chaka Galeano Dx/Rx/DC Orders Clinical Impression: Viral upper respiratory tract infection with cough, Near syncope Instructions: ED URI, Viral, No Abx (Adult) Prescriptions: No Action NK Stand Alone Forms: ED Work / School Excuse Primary Care Provider: Care Physician,No Primary Referrals: Marla Mae MD [Med Staff - Dehydration Unit Operator] - 5-7 Days Care Physician,No Primary [Primary Care Provider] - Disposition Disposition: Home, Self Care
[2023-07-09 19:02] VITALS: BP 143/77; PULSE 79; RESP 16; O2SAT 98
== END 2023-07-09 19:05 | disposition home or self-care (01) ==
PROVIDERS: Emergency Provider Emergency Medicine; Visit Provider Emergency Medicine
DX: J06.9 Acute upper respiratory infection, unspecified (principal); R55 Syncope and collapse; E66.9 Obesity, unspecified
CPT/HCPCS: 71046; 87428; 94640; 99282

== ENCOUNTER 2024-03-16 18:34 | Emergency (ER) | payer SELFPAY ==
[2024-03-16 18:35] VITALS: BP 160/99; PULSE 67; RESP 18; TEMP 36.7; O2SAT 97
== END 2024-03-16 22:15 | disposition left against medical advice (07) ==
LOC: ED 22:43
DX: H57.11 Ocular pain, right eye (principal); Z53.21 Procedure and treatment not carried out due to patient leaving prior to being seen by health care provider